=== PATIENT | female | born 1965 | race Native Hawaiian/Other Pacific Islander ===

== ENCOUNTER 2017-04-06 12:39 | Day surgery (SDC) | payer OTHER ==
[2017-03-30 11:23] VITALS: BMI 20.2
[2017-04-06 13:21] VITALS: O2SAT 100
[2017-04-06] MEDS ORDERED: ceFAZolin IV 1 gm in Dextrose 1 GM/50 ML BAG IVPB ONE (13:50)
[2017-04-06] MEDS ORDERED: Lactated Ringer's 1,000 ML IV ONE (13:50)
[2017-04-06] MEDS ORDERED: Midazolam 2 MG/2 ML VIAL ONE (13:57)
[2017-04-06] MEDS ORDERED: Propofol 10 mg/ml Inj (20 ML) ONE (13:58)
--- NOTE | 2017-04-06 14:56 | PCM.SURG1 ---
Surgeon's Initial Post Op Note - Surgeon's Notes Surgeon: Dr. Tobias Process Engineering Manager: Dr. Chao PGY-1 Type of Anesthesia: General Endo Pre-Operative Diagnosis: Right medial buttock lipoma Operative Findings: see operative report Post-Operative Diagnosis: see operative report Operation Performed: excision of right medial buttock lipoma Specimen/Specimens Removed: lipoma Estimated Blood Loss: EBL {In ML}: 10 Blood Products Given: N/A Drains Used: No Drains Post-Op Condition: Good Date of Surgery/Procedure: 04/06/17 Time of Surgery/Procedure: 13:30
[2017-04-06] MEDS ORDERED: HYDROmorphone 0.5 mg/0.5 ml ISec IVP PRN (15:06)
[2017-04-06] MEDS ORDERED: Lactated Ringer's 1,000 ML IV SCH (15:15)
[2017-04-06] MEDS ORDERED: HYDROmorphone 0.5 mg/0.5 ml ISec ONE (15:32)
--- NOTE | 2017-04-06 16:03 | OP ---
PROCEDURE DATE: 04/06/2017 SURGEON: Dr. Tobias. OPEN SHANK COVERER: Dr. Chao. ANESTHESIA: General, Dr. Byrd and RUTH Day. PREOPERATIVE DIAGNOSIS: Lipoma, right buttock. POSTOPERATIVE DIAGNOSIS: Lipoma, right buttock. PROCEDURE: Excision of lipoma, right buttock. DESCRIPTION OF OPERATION: With the patient anesthetized and placed in a right side up lateral positi on on the operating table, the right buttock was prepped and draped in the usual sterile manner. The patient was noted to have a large area of soft swelling on the medial portion of the right buttock w ith stretching of the overlying skin consistent with a nearly pedunculated lipoma. A longitudinal in cision was made along the lateral aspect of the area of swelling, taken down through the full thickne ss of skin and the plane between the normal subcutaneous fat and the lipoma was identified. Using bl unt dissection, the lipoma was freed from the underlying subcutaneous fat and muscle and delivered in to the wound. The incision was then made into a vertically oriented ellipse, allowing some of the ex cess overlying skin to be excised with the underlying lipoma, and the cyst was then completely remove d. The operative site was examined for hemostasis and the subcutaneous tissue was approximated with a few interrupted sutures of 4-0 Vicryl. Subcuticular closure was then performed with 4-0 Monocryl a nd Dermabond. The patient tolerated the procedure well and transferred to recovery room in stable co ndition. Estimated blood loss for the procedure was 10 mL. Kelley Tobias MD cc: 58 TT: 04/06/2017 16:02:43 mo
[2017-04-06 16:28] VITALS: BP 120/70; PULSE 80; RESP 18; TEMP 98
--- NOTE | 2017-04-10 12:12 | PQF GENQUE ---
Please see the pathology report. The skin incision measured 4.5cm in length, the mass was 10\ by 6 by4cm.. Layered closure represented 4.5cm lenght of incisions This form is a permanent part of the medical record Clarification of your documentation is requested to better reflect the severity of illness and intensity of treatment of your patient. Indicators present [X] Specify: Please specify the length of the excision, as well as length of layered closure] [] Specify: [] [] Specify: [] [] Specify: [] Location in the medical record that reflects the above clinical findings: [] Treatment Provided: [] PHYSICIAN'S RESPONSE Based on your medical judgment of the clinical indicators outlined above please clarify the following: [] Practitioner response [] If unable to determine, please check the box, sign and date. Present On Admission (POA) Indicator: [] Present at the time of admission [] Not present at the time of admission [] Clinically Undetermined In responding to this query, please exercise your independent professional judgment. The fact that a question is asked does not imply that any particular answer is desired or expected. Thank you for your clarification on this documentation. If you have any questions please call:[ ] * Thank you, [ Samina Baldwin] survey compiler JOIE
== END 2017-04-06 18:10 | disposition home or self-care (01) ==
LOC: C.SDS 12:39
PROVIDERS: ATTEND Specialist
DX: D17.39 Benign lipomatous neoplasm of skin and subcutaneous tissue of other sites (principal)
CPT/HCPCS: 11406; 12034; 88304; J0690; J1170; J2250; J2704; J3010; J7120